=== PATIENT | male | born 1975 | race Caucasian/White ===

== ENCOUNTER 2018-07-29 15:56 | Emergency (ER) | payer MEDICAID ==
[~2018-07-29] VITALS: Ht 182.9 cm; Wt 90.3 kg
[2018-07-29 16:20] VITALS: Ht 182.9 cm; Wt 90.3 kg
[2018-07-29 18:46] VITALS: BP 144/87
== END 2018-07-29 18:46 | disposition home or self-care (01) ==
LOC: ED 15:56
DX: G89.18 Other acute postprocedural pain (principal)